=== PATIENT | male | born 1985 | race Two or more races ===

== ENCOUNTER 2018-12-10 06:46 | Emergency (ER) | payer SELFPAY ==
[~2018-12-10] VITALS: Ht 188 cm; Wt 74.4 kg
[2018-12-10 07:06] VITALS: BP 180/115
[2018-12-10] MEDS ORDERED: SMZ/TMP 800/160MG TABLET. PO ONE (08:00)
[2018-12-10] MEDS ORDERED: LIDOCAINE 1%/EPI 1:100,000 20 ML VIAL. IJ ONE (08:00)
[2018-12-10] MEDS ORDERED: DIPHTH,PERTUSS(ACELL),TET TOX 0.5 ML DISP.SYRIN. VAX IM ONE (08:00)
[2018-12-10] MEDS ORDERED: SULF1TAB24 PO (08:07)
--- NOTE | 2018-12-10 08:07 | PHYS DOC ---
Past History Past Medical History: Diverticulitis Past Surgical History: No Surgical History Alcohol Use: Occasionally Adult General Chief Complaint Chief Complaint: OTHER COMPLAINTS HPI HPI 33-year-old male presents with a mass in his left buttock cheek. Patient states that he first noticed a bump about 4 days ago. It seems to have grown significantly since that time. It is painful with palpation 4/10. No discharge. He does not report any injury chance of foreign body. Patient has not had these before. Works as a face worker at a local restaurant. He just moved here from out of [facility]. He has no history of abscesses or MRSA. He has no allergies to medications. Review of Systems Review of Systems Constitutional: Denies fever or chills [] Eyes: Denies change in visual acuity, redness, or eye pain [] HENT: Denies nasal congestion or sore throat [] Respiratory: Denies cough or shortness of breath [] Cardiovascular: No additional information not addressed in HPI [] GI: Denies abdominal pain, nausea, vomiting, bloody stools or diarrhea [] : Denies dysuria or hematuria [] Musculoskeletal: Denies back pain or joint pain [] Integument: Mass left buttock cheek[] Neurologic: Denies headache, focal weakness or sensory changes [] Endocrine: Denies polyuria or polydipsia [] All other systems were reviewed and found to be within normal limits, except as documented in this note. Current Medications Current Medications Current Medications Medications (Trade) Dose Ordered Sig/Rosie Start Time Stop Time Status Last Admin Dose Admin Lidocaine/ Epinephrine (Xylocaine 1%-Epi 1:100,000) 20 ml 1X ONCE 12/10/18 07:15 12/10/18 07:16 UNV Physical Exam Physical Exam Constitutional: Well developed, well nourished, no acute distress, non-toxic appearance. [] HENT: Normocephalic, atraumatic, bilateral external ears normal, oropharynx moist, no oral exudates, nose normal. [] Eyes: PERRLA, EOMI, conjunctiva normal, no discharge. [] Neck: Normal range of motion, no tenderness, supple, no stridor. [] Cardiovascular:Heart rate regular rhythm, no murmur [] Lungs & Thorax: Bilateral breath sounds clear to auscultation [] Abdomen: Bowel sounds normal, soft, no tenderness, no masses, no pulsatile masses. [] Skin: 3 cm mass with fluctuant center just to the left side of the gluteal cleft. No surrounding erythema. Tender to palpation[] Back: No tenderness, no CVA tenderness. [] Extremities: No tenderness, no cyanosis, no clubbing, ROM intact, no edema. [] Neurologic: Alert and oriented X 3, normal motor function, normal sensory function, no focal deficits noted. [] Psychologic: Affect normal, judgement normal, mood normal. [] Current Patient Data Vital Signs Vital Signs Date Time Temp Pulse Resp B/P (MAP) Pulse Ox O2 Delivery O2 Flow Rate FiO2 12/10/18 07:06 98.0 104 22 97 Room Air EKG EKG [] Radiology/Procedures Radiology/Procedures [] Course & Med Decision Making Course & Med Decision Making Pertinent Labs and Imaging studies reviewed. (See chart for details) The patient had an abscess of the left buttocks. I was able to drain. See note for more details. I will place the patient on Bactrim DS twice a day for 7 days. We have given one dose in the emergency room. The patient's tetanus is not up-to-date. He was given a TDap the ED. He is stable for discharge at this time. [] Dragon Disclaimer Dragon Disclaimer This electronic medical record was generated, in whole or in part, using a voice recognition dictation system. Incision and Drainage Indication: 3 cm abscess of the left buttocks. Procedure: Verbal consent was obtained from the patient for incision and drainage of the abscess of the left buttocks. The patient was positioned appropriately and the skin over the incision site was prepped with iodine.. Local anesthesia was used, 1% lidocaine with epinephrine. A total of 8 mL was used.. An incision was then made with an 11 blade into the left buttocks just left of the gluteal cleft. There was moderate purulent drainage. A wound culture was collected. Loculations were with Josefina's. I placed a half-inch iodoform wick in the wound and covered the area with gauze. The patients tetanus status not up-to-date. He was given in the ED. The patient tolerated the procedure well. Complications: [None Departure Departure: Impression: Primary Impression: Abscess of buttock, left Disposition: 01 HOME, SELF-CARE Condition: STABLE Referrals: PCP,NO (PCP) Patient Instructions: Abscess, [id number] Scripts Sulfamethoxazole/Trimethoprim (BACTRIM DS TABLET) 1 Each Tablet 1 TAB PO BID for abscess, #14 TAB Prov: THANIA NOLASCO DO 12/10/18 THANIA NOLASCO DO Dec 10, 2018 08:07
== END 2018-12-10 08:15 | disposition home or self-care (01) ==
LOC: ER 06:46
DX: L02.31 Cutaneous abscess of buttock (principal)
CPT/HCPCS: 10060; 87070; 90471; 90715; 99283

== ENCOUNTER 2019-05-02 13:22 | Emergency (ER) | payer SELFPAY ==
[~2019-05-02] VITALS: Ht 188 cm; Wt 119.1 kg
[2019-05-02 13:22] VITALS: BP 150/73
[~2019-05-02 13:22] MED LIST: SULF1TAB24 PO
[2019-05-02] MEDS ORDERED: DOXY100C2 PO (14:19)
[2019-05-02] MEDS ORDERED: HYDR-3165 PO (14:19)
[2019-05-02] MEDS ORDERED: SULF1TAB24 PO (14:19)
--- NOTE | 2019-05-02 14:19 | PHYS DOC ---
Past History Past Medical History: Diverticulitis Past Surgical History: No Surgical History Alcohol Use: Occasionally Adult General Chief Complaint Chief Complaint: ABSCESS HPI HPI Patient is a 33-year-old male who presents with complaint of abscess to his left buttock, in his gluteal crease area. Patient states that he had been here a few weeks back for abscess in the same location. He states that it had been I&D that that time and he was placed on 10 days of antibiotics which she finished. He states that over the last couple of days he has had an increase in swelling and pain to the location again. He denies any anal inch. He rates pain as moderate, stating that pain is worsened with walking and with sitting. He denies any fe tiffany.[] Review of Systems Review of Systems Constitutional: Denies fever or chills [] Respiratory: Denies cough or shortness of breath [] Cardiovascular: No additional information not addressed in HPI [] Integument: Positive swelling, pain and induration[] Allergies Allergies Allergies Coded Allergies Type Severity Reaction Last Updated Verified No Known Drug Allergies 12/10/18 No Physical Exam Physical Exam Constitutional: Well developed, well nourished, no acute distress, non-toxic appearance. [] Cardiovascular:Heart rate regular rhythm, no murmur [] Lungs & Thorax: Bilateral breath sounds clear to auscultation [] Skin: Left inner buttock demonstrates area of tenderness, induration and small amount of fluctuance just to the left of midline in the gluteal crease. [] EKG EKG [] Radiology/Procedures Radiology/Procedures [] Course & Med Decision Making Course & Med Decision Making Pertinent Labs and Imaging studies reviewed. (See chart for details) Abscess Incision and Drainage with irrigation by me: Location: Left buttock Anesthesia: Local 1% Lidocaine Technique: Irrigated. Disrupted loculations w/ instrumentation Packing: None Complications: Neurovascularly intact post procedure 48 hour wound check. Scar minimization instructions given. Dragon Disclaimer Dragon Disclaimer This electronic medical record was generated, in whole or in part, using a voice recognition dictation system. Departure Departure: Impression: Primary Impression: Abscess Disposition: 01 HOME, SELF-CARE Condition: STABLE Referrals: PCP,NO (PCP) Patient Instructions: Abscess, Abscess, Care After Scripts Hydrocodone Bit/Acetaminophen (NORCO 5-325 TABLET) 1 Each Tablet 1 TAB PO PRN Q6HRS PRN for PAIN, #12 TAB 0 Refills Prov: GLENN DEL ROSARIO Jr. DO 05/02/19 Doxycycline Hyclate (DOXYCYCLINE HYCLATE) 100 Mg Capsule 1 CAP PO BID for infection, #20 CAP Prov: GLENN DEL ROSARIO Jr. DO 05/02/19 Sulfamethoxazole/Trimethoprim (BACTRIM DS TABLET) 1 Each Tablet 1 TAB PO BID for infection, #20 TAB Prov: GLENN DEL ROSARIO Jr. DO 05/02/19 GLENN DEL ROSARIO Jr. DO May 02, 2019 14:19
== END 2019-05-02 14:30 | disposition home or self-care (01) ==
LOC: ER 13:22
DX: L02.31 Cutaneous abscess of buttock (principal)
CPT/HCPCS: 10060; 99283